=== PATIENT | male | born 1990 | race Caucasian/White ===

== ENCOUNTER 2017-11-19 07:40 | Emergency (ER) | payer SELFPAY ==
[~2017-11-19] VITALS: Ht 185.4 cm; Wt 89.4 kg
[~2017-11-19 07:40] MED LIST: Amoxicillin500 MG PO; CODGUAEL PO; HYDACE5 PO; IBUP600 PO; IBUP800 PO; Naprosyn500 MG PO; PENVK500 PO; PERM5TC TOP; Percocet 5-3251 EACH PO; Sudogest60 MG PO; Ultram50 MG PO; Veetids 500500 MG PO; Zofran Odt4 MG SL
[2017-11-19] MEDS ORDERED: CEPH500 PO (08:59)
[2017-11-19] MEDS ORDERED: IBUP600 PO (08:59)
== END 2017-11-19 09:45 | disposition home or self-care (01) ==
LOC: ER 07:40
DX: S41.112A Laceration without foreign body of left upper arm, initial encounter (principal); F17.200 Nicotine dependence, unspecified, uncomplicated; W17.89XA Other fall from one level to another, initial encounter
CPT/HCPCS: 12034; 90471; 90714; 99283; J2270

== ENCOUNTER 2017-11-21 15:13 | Emergency (ER) | payer SELFPAY ==
[~2017-11-21] VITALS: Ht 182.9 cm; Wt 85.7 kg
[~2017-11-21 15:13] MED LIST changes: +CEPH500 PO
[2017-11-21] MEDS ORDERED: Keflex500 MG PO (15:36)
== END 2017-11-21 16:14 | disposition home or self-care (01) ==
LOC: ER 15:13
DX: S41.112D Laceration without foreign body of left upper arm, subsequent encounter (principal)
CPT/HCPCS: 96372; 99283; J0696

== ENCOUNTER 2017-12-02 17:00 | Emergency (ER) | payer SELFPAY ==
[~2017-12-02] VITALS: Ht 182.9 cm; Wt 81.7 kg
[~2017-12-02 17:00] MED LIST changes: +Keflex500 MG PO
== END 2017-12-02 17:40 | disposition home or self-care (01) ==
LOC: ER 17:00
DX: S41.112D Laceration without foreign body of left upper arm, subsequent encounter (principal); F17.210 Nicotine dependence, cigarettes, uncomplicated; W17.89XD Other fall from one level to another, subsequent encounter
CPT/HCPCS: 99281

== ENCOUNTER 2018-09-04 14:22 | Emergency (ER) | payer OTHER ==
[~2018-09-04] VITALS: Ht 182.9 cm; Wt 85.3 kg
== END 2018-09-04 15:12 | disposition home or self-care (01) ==
LOC: ER 14:22
DX: M25.521 Pain in right elbow (principal); F17.200 Nicotine dependence, unspecified, uncomplicated; W22.8XXA Striking against or struck by other objects, initial encounter
CPT/HCPCS: 73080; 99283-25

== ENCOUNTER 2024-06-21 13:56 | Emergency (ER) | payer SELFPAY ==
[~2024-06-21] VITALS: Ht 182.9 cm; Wt 80.7 kg
[2024-06-21 14:10] VITALS: BP 148/103
[2024-06-21] MEDS ORDERED: Amoxicillin500 MG PO (14:12)
== END 2024-06-21 14:14 | disposition home or self-care (01) ==
LOC: ER 13:56
DX: K04.7 Periapical abscess without sinus (principal); F17.210 Nicotine dependence, cigarettes, uncomplicated; Z79.899 Other long term (current) drug therapy
CPT/HCPCS: 99282

== ENCOUNTER 2025-02-23 08:14 | Emergency (ER) | payer OTHER ==
[~2025-02-23] VITALS: Ht 182.9 cm; Wt 69.0 kg
[2025-02-23 08:35] VITALS: BP 113/75
[2025-02-23] MEDS ORDERED: OxyCODONE 5 mg/Acetamin 325 mg TABLET PO ONE (09:00)
[2025-02-23] MEDS ORDERED: Norco 5-325 Ta1 EACH PO (09:25)
== END 2025-02-23 09:49 | disposition home or self-care (01) ==
LOC: ER 08:14
DX: S52.592A Other fractures of lower end of left radius, initial encounter for closed fracture (principal); F17.210 Nicotine dependence, cigarettes, uncomplicated; V86.56XA Driver of dirt bike or motor/cross bike injured in nontraffic accident, initial encounter
CPT/HCPCS: 29125; 73110; 99283-25; A9270